=== PATIENT | male | born 2005 | race Caucasian/White ===

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

== ENCOUNTER 2025-06-20 09:20 | Emergency (ER) | payer OTHER, SELFPAY ==
[2025-06-20 09:28] VITALS: BP 150/67; PULSE 50; RESP 16; TEMP 36.6; O2SAT 100
--- NOTE | 2025-06-20 09:31 | ED.GENADULT ---
HPI - General Adult General Stated complaint: light headed/eyes twitch/left arm numb Source: patient and RN notes reviewed Mode of arrival: ambulatory Limitations: no limitations History of Present Illness HPI narrative: 20 y/o male with hx ADHD presented for multiple concerns today. States he had an episode lasting about 15 minutes of the eyes twitching, face 'shaking,' felt like he couldn't move his body, dizziness, and the left arm felt numb from the hand up to the shoulder. Says he has experienced numbness to the arm in the past but it is usually from the shoulder down to the hand instead. Dizziness was described as he felt like he was about to pass out. Pt was at his job but not working, says he was there to charge his phone. Currently says the symptoms have fully resolved. Pt had not eaten prior to the episode, but ate a breakfast burrito during the episode. Denies chest pain, palpitations, nausea, vomiting, or fever. Pt is not taking any meds for ADHD. Endorses smoking marijuana and vaping. Denies etoh. Related Data Allergies Allergy/AdvReac Type Severity Reaction Status Date / Time amoxicillin Allergy Intermediate rash and Verified 07/16/22 09:44 itching Penicillins Allergy Intermediate rash and Verified 07/16/22 09:44 itching Review of Systems Review of Systems: CONSTITUTIONAL: Denies body aches, fever, chills, or sweats. EYES: reports eye twitching Denies visual changes, redness, or discharge. ENT: Denies rhinorrhea, congestion, sore throat, or otalgia. CARDIOVASCULAR: Denies chest pain, palpitations, or edema. RESPIRATORY: Denies cough or dyspnea. GASTROINTESTINAL: Denies abdominal pain, nausea, vomiting, or diarrhea. GENITOURINARY: Denies dysuria or hematuria. SKIN: Denies rash, itching, or wounds. MUSCULOSKELETAL: Denies back pain, joint pain, or myalgia. NEUROLOGIC: Endorses dizziness and left arm numbness now resolved denies tingling, or weakness, headache PSYCH: Denies depression or anxiety. All systems reviewed & are unremarkable except as noted in HPI and below [facility] Past Medical History Medical History (Updated 06/20/25 @ 09:45 by Yisel Stout APRN) History of strep sore throat Ear infection ADHD (attention deficit hyperactivity disorder) Surgical History Surgical History (Updated 07/11/21 @ 10:28 by Emily Harris NP) History of tonsillectomy and adenoidectomy History of placement of ear tubes Family History Family History (Updated 07/11/21 @ 10:29 by Emily Harris NP) Grandparent Hypertension Cancer Mother Asthma Social History Social History (Updated 07/11/21 @ 10:30 by Emily Harris NP) Smoking status: Never smoker Alcohol intake: never Substance use: never Living arrangements: with family Occupation/Education: student Gender identity (if verbalized by the patient): Male Comments At time of signature, I have reviewed and agree with nursing past medical, surgical, social and family history unless otherwise noted. Please see nursing chart for further information. There is no relevant family history pertinent to the presenting complaint Exam Narrative: GENERAL: Well-appearing, well-nourished HEAD: Normocephalic, atraumatic. EYES: PERRLA, EOMI. ENT: Mucous membranes pink and moist. No rhinorrhea. TMs normal bilaterally. NECK: Normal AROM. CHEST: No respiratory distress. Clear to auscultation. HEART: Regular rate and rhythm. No murmur appreciated. Normal peripheral pulses. ABDOMEN: Soft, nontender, nondistended, normal active bowel sounds. EXTREMITIES: Normal range of motion. No edema. SKIN: Warm, dry, no rash. Capillary refill normal. Normal skin turgor. NEURO:No focal deficits. Alert and oriented x3. EOMs intact without nystagmus. No facial droop/asymmetry noted bilaterally. Grimace intact. Intact sensation in face. Hearing intact bilaterally. Shoulder shrug intact. Strength 5/5 bilateral upper extremities. Strength 5/5 bilateral lower extremities. Ambulatory exam with a normal based, steady gait. PSYCH: Normal affect. Course Course Emergency Course: Patient is aware of diagnosis, understands and agrees to treatment plan. Anticipatory guidance given. Patient agrees to follow-up as directed and is aware of reasons to seek care at the emergency department. Portions of this record may have been created with voice recognition software Level of Care: Express Care Visit Medical Decision Making MDM Narrative Medical decision making narrative: The patient was [facility] for report of left arm numbness, bilateral eye twitching, face shaking and dizziness, which he reports lasted approx 15 minutes today. Pt says symptoms resolved on their own. We discussed possible etiologies of these symptoms and the need for further workup in the ER. Advised ER transfer. Pt declines at this time and is aware of potential risks associated. He says he will call his pcp upon dc today. There are no focal deficits on exam. There is no history of fever, neck is supple without meningismus. Discussed physical exam findings. Advised supportive measures and signs/symptoms to go to the ER. Pt is appropriate for outpt treatment and f/u. Differential Diagnosis Differential Diagnosis: hypertension, hypertensive urgency/crisis, headache, migraine, CVA, aneurysm, vertigo, TIA, electrolyte imbalance, dehydration Vital Signs Vital Signs: reviewed Discharge Plan Discharge Clinical Impression: Dizziness Patient Disposition: Home Condition: Stable Instructions: Antibiotic Form, Dizziness (ED) Additional Instructions: We discussed possible causes of your symptoms, and you are aware that more serious underlying conditions can manifest as dizziness, so it's important to understand the potential causes and when to go to the ER. please call your PCP upon discharge today to schedule a follow up appointment..? Change positions slowly Sit down immediately if you feel dizzy or lightheaded Increase water intake, stay hydrated Watch for worsening symptoms (headache, vision changes, dizziness that does not go away, chest pain, heart racing, sweating) Go to the ER for return of the symptoms that brought you to clinic, and/or any worsening symptoms or concerns. Patient Language: Yi Prescriptions: No Action dextroamphetamine-amphetamine 10 mg tablet 10 mg PO DAILY Vyvanse 50 mg capsule 50 mg PO DAILY guanfacine 3 mg tablet extended release 24 hr 3 mg PO DAILY pseudoephedrine HCl [12 Hour Decongestant] 120 mg tablet extended release 120 mg PO Q12H PRN (Reason: nasal congestion) Qty: 12 0RF dextromethorphan-guaifenesin [Mucinex DM] 60-1,200 mg tablet extended release 12 hr 1 tablet PO Q12H Qty: 12 0RF Follow-up/Referrals: PHYSICIAN NOT ON STAFF,NONSTAFF [Primary Care Provider] - Time of Disposition: 09:45 Quality Simon Coma Scale Verbal: Oriented and Alert Motor: Follows Commands Acute Stroke Pre-Treatment Evaluation Acute Ischemic Stroke Pretreatment Evaluation: Acute Ischemic Stroke Pre-Treatment Evaluation Inclusion Criteria (must answer yes to questions 1 and 2) 1. Age 18 Years Or Older: No 2. Onset Of Stroke Symptoms Well Established To Be Less Than 3 Hours: No 3. Clinical Diagnosis Of Ischemic Stroke Causing Measureable Neurological Deficit And A Non-Contrast Head CT Showing NO Hemorrage: No Contraindications (0-3 Hours) 5. Stroke Or Severe Head Trauma Within Past 3 Months: No 6. Known History Of Intracranial Hemorrage: No 7. Symptoms Or Clinical Presentation Suggestion Of Subarachnoid hemorrhage: No 8. Gastrointestinal Or Urinary Tract hemorrhage Within 21 Days: No 9. Prothrombin Time (TP) Greater Than 15 Seconds or An INR Greater Than 1.7 Or An Elevated Activated Partial Throboplastin Time (aPTT): No 10. Platelet Count <100,000/ml: No 11. Glucose Lower Than 50mg/dl Or Greater than 400mg/dl: No 12. Seizure At Onset Stroke: No 13. Acute Myocardial Infarction Or Post Myocardial Infarction Pericarditis: No 14. Arterial Puncture At A Non-Compressible Site, Biopsy of Internal Organ, Within The Preceding 7 Days: No 15. Major Surgery Or Serious Trauma (Besides Head) In The Previous 14 Days: No 16. Uncontrolled Or Sustained SBP (systolic>185 mmHg) or DBP (diastolic>110 mmHg) Or Requiring Aggressive Treatment To Lower: No 17. : No Contraindications (3-4.5 Hours) 1. Age Less Than 18 or Greater Than 80 years: No 2. Severe Stroke Assessed Clinically (NIHSS Score Greater Than 25): No 3. Combination Or Previous Stroke Or Diabetes Mellitus: No 4. Symptoms Minor Or Rapidly Improving: No
== END 2025-06-20 09:49 | disposition home or self-care (01) ==
PROVIDERS: Emergency Provider Nurse Practitioner Family
DX: R42 Dizziness and giddiness (principal)
CPT/HCPCS: 99211; G0463